=== PATIENT | male | born 1945 | race Caucasian/White ===

== ENCOUNTER → 2017-10-06 10:57 | Outpatient (CLI) | payer MEDICARE, OTHER, SELFPAY ==
[2017-10-07 10:40] LABS: Hepatitis C Ab w Rflx HCV PCR Negative (NEGAT)
== END ==
PROVIDERS: PCP Emergency Medicine; Visit Provider Emergency Medicine
DX: Z11.59 Encounter for screening for other viral diseases (principal); Z11.9 Encounter for screening for infectious and parasitic diseases, unspecified
CPT/HCPCS: 36415; 86803

== ENCOUNTER 2018-05-04 10:56 | Outpatient (CLI) | payer MEDICARE, OTHER, SELFPAY ==
--- NOTE | 2018-05-04 10:47 | DI.RAD_ITS ---
SYMPTOM/DIAGNOSIS: LT SHOULDER PAIN LEFT SHOULDER: The bony structures are normally mineralized. The glenohumeral joint is well maintained with minimal DJD. Also mild DJD involving the AC joint is apparent. There is no evidence of a fracture or dislocation.
== END 2018-05-04 11:16 ==
PROVIDERS: PCP Emergency Medicine; Referring Provider Emergency Medicine; Visit Provider Student in an Organized Health Care Education/Training Program
DX: M25.512 Pain in left shoulder (principal); M19.012 Primary osteoarthritis, left shoulder; I10 Essential (primary) hypertension
CPT/HCPCS: 99213; 73030

== ENCOUNTER → 2018-06-29 10:20 | Outpatient (BNVA) | payer MEDICARE, OTHER, SELFPAY | PROVIDERS: PCP Emergency Medicine; Referring Provider Emergency Medicine; Visit Provider Student in an Organized Health Care Education/Training Program | DX: M25.512 Pain in left shoulder (principal); I10 Essential (primary) hypertension; M75.82 Other shoulder lesions, left shoulder | CPT/HCPCS: 99212; 99213 ==

== ENCOUNTER 2018-09-22 00:40 | Outpatient (CLI) | payer MEDICARE, OTHER, SELFPAY ==
--- NOTE | 2018-09-22 09:38 | DI.MRI_ITS ---
SYMPTOM/DIAGNOSIS: LEFT SHOULDER PAIN MRI LEFT SHOULDER: Routine noncontrast examination was performed. There appears to be a large tear of the supraspinatus tendon anteriorly at its insertion on to the greater tuberosity. The infraspinatus tendon appears intact as do the subscapularis and teres minor tendons There is mild fatty atrophy of the teres minor muscle and the infraspinatus muscle. The biceps tendon has a normal appearance and location. The glenoid labrum is grossly unremarkable on this noncontrast examination. The articular cartilage at the glenohumeral joint appears well maintained. The ligaments are intact. There is a small amount of fluid seen in the subacromial, subdeltoid bursa. There is normal amount of fluid seen at the glenohumeral joint. The soft tissues are unremarkable. There are mild degenerative signal changes in the greater tuberosity and at the acromioclavicular joint. No findings to suggest an occult fracture or avascular necrosis is present. IMPRESSION: Large partial tear of the supraspinatus tendon.
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
== END 2018-09-22 01:00 ==
PROVIDERS: PCP Emergency Medicine; Visit Provider Student in an Organized Health Care Education/Training Program
DX: M25.512 Pain in left shoulder (principal); M75.102 Unspecified rotator cuff tear or rupture of left shoulder, not specified as traumatic
CPT/HCPCS: 73221

== ENCOUNTER → 2018-09-28 13:31 | Outpatient (BNVA) | payer MEDICARE, OTHER, SELFPAY | PROVIDERS: PCP Emergency Medicine; Referring Provider Emergency Medicine; Visit Provider Student in an Organized Health Care Education/Training Program | DX: M75.102 Unspecified rotator cuff tear or rupture of left shoulder, not specified as traumatic (principal); Z87.81 Personal history of (healed) traumatic fracture; I10 Essential (primary) hypertension | CPT/HCPCS: 99213 ==

== ENCOUNTER 2018-11-23 13:30 | Outpatient (CLI) | payer MEDICARE, OTHER, SELFPAY ==
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
== END 2018-11-23 13:50 ==
PROVIDERS: PCP Emergency Medicine; Visit Provider Student in an Organized Health Care Education/Training Program
DX: Z01.818 Encounter for other preprocedural examination (principal); M75.102 Unspecified rotator cuff tear or rupture of left shoulder, not specified as traumatic; I10 Essential (primary) hypertension
CPT/HCPCS: NC

== ENCOUNTER 2018-11-29 06:55 | Day surgery (SDC) | payer MEDICARE, OTHER, SELFPAY ==
[2018-11-29] VITALS (8 sets, daily range): BP systolic 136–172; BP diastolic 77–99; PULSE 56–64; RESP 12–16; TEMP 36–36.6; O2SAT 95–98
[2018-11-29] MEDS: Lactated Ringers 1,000 ML 80 ML IV ×2 (07:57→08:59)
--- NOTE | 2018-11-29 08:06 | PDOC.DSDIS_ITS ---
Discharge Plan Disposition Patient Disposition: HOME Condition: Good Discharge Details Reason For Visit: (L) RTC TEAR Attending Provider: Cheng Martinez Primary Care Provider: Carlos Cuellar Home Meds and New Rx's Prescriptions: New acetaminophen 500 mg tablet 500 mg PO Q6H PRN (Reason: pain) Qty: 60 RF: 2 hydrocodone-acetaminophen 5-325 mg tablet 1 tab PO Q6H PRN (Reason: severe pain) Qty: 12 RF: 0 Continued aspirin [Aspir-81] 81 MG tablet,delayed release (DR/EC) 1 tab PO DAILY RF: 0 sildenafil [Viagra] 100 MG tablet 1 tab PO PRN MDD 1 tab Qty: 10 RF: 12 metoprolol succinate [Toprol XL] 25 MG tablet extended release 24 hr 1 tab PO DAILY Qty: 90 RF: 4 Adjuvant As01b/Pf, Vial 1 of 2 [Shingrix Adjuvant Component] 0.5 ML VIAL 0.5 ml IM ONCE Qty: 1 RF: 1 hydrochlorothiazide 25 mg tablet 25 mg PO DAILY Qty: 90 RF: 4 ibuprofen 200 mg Tablet 200 mg PO BID RF: 0 atorvastatin 40 mg tablet 40 mg PO .EVENING RF: 0 Discharge Instructions Stand Alone Forms: Juan España w/RCR Referrals: Cheng Martinez MD [ [facility] STAFF PHYSICIAN] - Equipment/Supplies: Bolster Pillow and Sling Activity:: Elevate Remove Dressings/Wound Care:: Do Not Remove Shower/Bathe:: Cover Diet:: As Tolerated Discharge Orders Discharge Orders: Discharge Order (Routine); Ordered 11/29/18 Ordered By: Ricarda Puentes DS: Diagnosis Discharge Diagnosis (1) Left rotator cuff tear: Status: Chronic
[2018-11-29] MEDS: Bupivacaine LIPOSOME/PF 133 MG/10 ML VIAL IJ (08:08)
[2018-11-29] MEDS: CLINDAMYCIN 600 MG/50 ML BAG 100 MG IVPB (08:53)
[2018-11-29] MEDS: EPINEPHrine 1 MG/ML AMP pres-free (09:20)
--- NOTE | 2018-11-29 13:54 | W.PM.OP ---
Date of service: 11/29/18 Time of Service: 10:55 Operative Note Operative Note DATE OF PROCEDURE: 11/29/18 PRE-OP DIAGNOSIS: Left biceps tendinitis, left rotator cuff tear POST-OP DIAGNOSIS: other (Left biceps tendon tear, left rotator cuff tear) PROCEDURE: - Arthroscopic Rotator Cuff Repair - Extensive debridement of anterior and posterior glenohumeral joint and rotator cuff - Subacromial Debridement with Acromioplasty SURGEON: Cheng Martinez SHIRT IRONER SUPERVISOR: Ricarda Puentes ANESTHESIA: GETA and regional ESTIMATED BLOOD LOSS: 0 PATHOLOGY: none sent COMPLICATIONS: None Patient was transported to: PACU Patient's condition: stable Indications: I have seen Fahad in clinic for a painful shoulder. Pathology was confirmed based on MRI and exam findings. Nonoperative measures were exhausted but disability and pain persisted. I discussed shoulder arthroscopy and procedures. I reviewed the risks of the procedures to include, but not limited to, bleeding, infection, pain, stiffness, damage to nerves or vessels, recurrence, hardware failure, blood clot. Despite these risks, the patient elected to proceed. Findings: A diagnostic arthroscopy was performed with the following findings: Articular Side - Glenohumeral Joint: No significant arthritic change - Labrum: Fraying throughout from 10-3 o'clock - Cuff: Articular sided tear of the supraspinatus exposing 7 to 8 mm - Biceps: Complex tearing of the biceps tendon Subacromial Side - Bursal: Notable inflammatory disease - Rotator Cuff: Friable tissue overlying the articular sided tear which communicated into the joint - Small anterolateral spur Procedure Description: Fahad was greeted in the preoperative holding area where the correct side was identified and marked. The consent was reviewed with the patient and signed. The history and physical was updated. All questions were answered. Fahad was taken back to the PACU for administration of an intrascalene nerve block. He was then taken to the operating room. The patient was placed into the supine position on the operating room table. A general anesthetic was administered. Fahad was then positioned in the beach chair position. All bony prominences were well padded. The head was placed in a foam supervisor tunnel heading in a neutral position. Prophylactic antibiotics in the form of clindamycin were administered. The left arm/shoulder was then prepped with Chloraprep and draped in a standard fashion with stockinette and shoulder drape. A timeout to confirm correct identity, side and site, procedure, allergies, anesthesia, and medical concerns was performed. The arm was placed into a pneumatic dejesus, SPIDER2. The shoulder arthroscopy was then performed. The glenohumeral joint was injected with 20 cc of normal saline with good flow back. A standard posterior portal was made and the joint was entered atraumatically with a blunt arthroscope. Once inside we had good visualization of the structures of the glenohumeral joint. An anterior portal was established with spinal needle localization. A 6.5 mm cannula was inserted. A probe was then used to perform a diagnostic arthroscopy. There is noted to be no significant cartilage damage of the glenoid humeral joint. The labrum was frayed from about 10:00 to 3:00. There were no loose bodies in the inferior pouch. The superior rotator cuff was torn from the anterior most aspect of the supraspinatus through the posterior aspect. There is about 7 to 8 mm of footprint exposed but the tissue quality appeared to be quite poor. The biceps tendon had significant tearing in its intra-articular portion. The subscapularis had some fraying at its insertion over the upper portion of the subscapularis tendon but was otherwise intact. Using letter cautery device and performed a biceps tenotomy. With both shaver and letter cautery I debrided the labrum from anterior to posterior extending down to the posterior labrum at 3:00. I also debrided down the insertional fibers of the subscapularis to expose the tendinous fibers making sure that was completely attached. I also debrided down the articular side of the rotator cuff exposing the dimensions of the exposed tuberosity. The arthroscope was then inserted into the subacromial space. The 6.5 mm cannula was placed lateral to the CA ligament. Given that there was no significant tearing of the rotator cuff I went ahead and release the CA ligament off the anterolateral corner of the acromion. A complete bursectomy is performed anteriorly, posteriorly, and laterally with electrocautery and shaver. This had excellent exposure of the rotator cuff. An anterolateral portal was then made with spinal needle localization and a 7.5 mm cannula was placed. The bursal side rotator cuff was inspected and this demonstrated friability on the bursal side rotator cuff at the level of the articular sided tear, which was marked with a PDS. A probe easily fell into the cuff and through the cuff into the joint. This area of the rotator cuff was then debrided with a shaver exposing the tear edges. The edges were debrided down. The footprint was debrided with a shaver to expose bleeding bone. A secondary posterior lateral viewing portal was established. The anterior lateral portal became the working portal. A tissue grasper was used to reduce the rotator cuff. A single Mitek Healix 4.5 mm anchor was then placed along the articular margin. 2 horizontal mattress sutures were placed into the supra spinatus tendon. These were done with a retrograde suture passing device. They were tied and this brought down the tendon to the articular side of the footprint. There was some extra tissue overlying the footprint and no gapping. I then placed a single lateral row anchor, Mytec Healix 4.75 mm, incorporating the suture limbs into the lateral aspect of the proximal humerus. There is a small dogear anteriorly which was brought down with the single stitch within the lateral anchor. The sutures were cut. There was a prominent anterolateral spur. A 5.0 mm cecilia was then inserted from the posterior portal. The anterolateral corner of the acromion was then resected in plane with the posterior slope of the acromion. The scope equipment was removed from the shoulder. Excess fluid was evacuated. The portal sites were closed with 3-0 Monocryl. The wounds were dressed with Steri-Strips, 4 x 4's, ABDs, Medipore tape. A sling was applied. The patient tolerated the procedure well and was returned to the PACU in a stable condition suffering no known complication.
== END 2018-11-29 13:21 | disposition home or self-care (01) ==
PROVIDERS: PCP Emergency Medicine; Visit Provider Student in an Organized Health Care Education/Training Program
PROC: (CPT 29827; principal; 2018-11-29 09:00)
DX: S46.012A Strain of muscle(s) and tendon(s) of the rotator cuff of left shoulder, initial encounter (principal); S46.112A Strain of muscle, fascia and tendon of long head of biceps, left arm, initial encounter; S43.492A Other sprain of left shoulder joint, initial encounter; V00.321A Fall from snow-skis, initial encounter; Y93.23 Activity, snow (alpine) (downhill) skiing, snowboarding, sledding, tobogganing and snow tubing; G89.18 Other acute postprocedural pain; I10 Essential (primary) hypertension; I25.2 Old myocardial infarction; Z87.891 Personal history of nicotine dependence; Z86.2 Personal history of diseases of the blood and blood-forming organs and certain disorders involving the immune mechanism
CPT/HCPCS: 29827; 29823; 29826; 76942; J0131; J0171; J1100; J1885; J2250; J2405; J3010; L3670

== ENCOUNTER → 2018-12-09 09:13 | Outpatient (BNVA) | payer MEDICARE, OTHER, SELFPAY | PROVIDERS: PCP Emergency Medicine; Referring Provider Emergency Medicine; Visit Provider Student in an Organized Health Care Education/Training Program | DX: S46.012A Strain of muscle(s) and tendon(s) of the rotator cuff of left shoulder, initial encounter; X58.XXXA Exposure to other specified factors, initial encounter; I10 Essential (primary) hypertension ==

== ENCOUNTER → 2019-01-05 09:18 | Outpatient (BNVA) | payer MEDICARE, OTHER, SELFPAY | PROVIDERS: PCP Emergency Medicine; Referring Provider Emergency Medicine; Visit Provider Student in an Organized Health Care Education/Training Program | DX: S46.012D Strain of muscle(s) and tendon(s) of the rotator cuff of left shoulder, subsequent encounter (principal); X58.XXXD Exposure to other specified factors, subsequent encounter; I10 Essential (primary) hypertension ==

== ENCOUNTER → 2019-02-13 10:21 | Outpatient (BNVA) | payer MEDICARE, OTHER, SELFPAY | PROVIDERS: PCP Emergency Medicine; Referring Provider Emergency Medicine; Visit Provider Student in an Organized Health Care Education/Training Program | DX: I10 Essential (primary) hypertension; S46.012D Strain of muscle(s) and tendon(s) of the rotator cuff of left shoulder, subsequent encounter; X58.XXXD Exposure to other specified factors, subsequent encounter ==

== ENCOUNTER → 2019-03-27 09:57 | Outpatient (BNVA) | payer MEDICARE, OTHER, SELFPAY | PROVIDERS: PCP Emergency Medicine; Referring Provider Emergency Medicine; Visit Provider Student in an Organized Health Care Education/Training Program | DX: S46.012D Strain of muscle(s) and tendon(s) of the rotator cuff of left shoulder, subsequent encounter (principal); X58.XXXD Exposure to other specified factors, subsequent encounter | CPT/HCPCS: 99213 ==

== ENCOUNTER 2019-10-18 01:13 | Outpatient (CLI) | payer MEDICARE, OTHER, SELFPAY ==
--- NOTE | 2019-10-18 07:15 | DI.RAD_ITS ---
EXAM: XR CHEST 2V PA LATERAL CLINICAL HISTORY: Chronic cough,R05 TECHNIQUE: COMPARISON: No exams were available for comparison FINDINGS: There is a vertebral compression fracture at the thoracolumbar junction, perhaps T12. This is of unc ertain age. Heart is not enlarged and the lungs are clear and well expanded. No pleural effusion seen. IMPRESSION: No evidence of acute process. RADIATION DOSE DELIVERED: Total DLP
== END 2019-10-18 01:33 ==
PROVIDERS: PCP Emergency Medicine; Visit Provider Emergency Medicine
DX: R05 Cough (principal); S22.089A Unspecified fracture of T11-T12 vertebra, initial encounter for closed fracture; I47.1 Supraventricular tachycardia; I49.3 Ventricular premature depolarization
CPT/HCPCS: 71046; 93225

== ENCOUNTER 2019-10-18 03:41 | Outpatient (CLI) | payer MEDICARE, OTHER, SELFPAY | END 2019-10-18 04:01 | PROVIDERS: PCP Emergency Medicine; Visit Provider Emergency Medicine | DX: R00.1 Bradycardia, unspecified (principal); I47.1 Supraventricular tachycardia; I49.3 Ventricular premature depolarization | CPT/HCPCS: 93225 ==

== ENCOUNTER 2019-10-19 14:25 | Outpatient (CLI) | payer MEDICARE, OTHER, SELFPAY | END 2019-10-19 14:45 | PROVIDERS: PCP Emergency Medicine; Visit Provider Emergency Medicine | DX: R00.1 Bradycardia, unspecified (principal); I47.1 Supraventricular tachycardia; I49.3 Ventricular premature depolarization | CPT/HCPCS: 93227; 93226 ==

== ENCOUNTER 2019-10-20 00:40 | Outpatient (CLI) | payer MEDICARE, OTHER, SELFPAY ==
[2019-10-20 13:31] LABS: HDL Cholesterol 64 mg/dL (40-60); Triglyceride 119 mg/dL (<150)
[2019-10-20 13:44] LABS: Hemoglobin A1C 5.7 % (<5.7)
[2019-10-20 14:39] LABS: Calculated LDL 83 mg/dL (<100); Cholesterol 170 mg/dL (<200)
== END 2019-10-20 01:00 ==
PROVIDERS: PCP Emergency Medicine; Visit Provider Emergency Medicine
DX: I10 Essential (primary) hypertension (principal); R73.9 Hyperglycemia, unspecified
CPT/HCPCS: 36415; 80061; 83036

== ENCOUNTER → 2019-11-14 12:57 | Outpatient (BNVA) | payer MEDICARE, OTHER, SELFPAY | PROVIDERS: PCP Emergency Medicine; Referring Provider Emergency Medicine; Visit Provider Nurse Practitioner Gerontology | DX: N52.1 Erectile dysfunction due to diseases classified elsewhere (principal); N40.1 Benign prostatic hyperplasia with lower urinary tract symptoms; R33.8 Other retention of urine; I10 Essential (primary) hypertension | CPT/HCPCS: 99204; 99215 ==

== ENCOUNTER → 2019-12-13 11:20 | Outpatient (BNVA) | payer MEDICARE, OTHER, SELFPAY | PROVIDERS: PCP Emergency Medicine; Referring Provider Emergency Medicine; Visit Provider Nurse Practitioner Gerontology | DX: N52.1 Erectile dysfunction due to diseases classified elsewhere (principal); N40.1 Benign prostatic hyperplasia with lower urinary tract symptoms; R33.8 Other retention of urine; I10 Essential (primary) hypertension | CPT/HCPCS: 99213 ==

== ENCOUNTER → 2020-03-13 12:41 | Outpatient (BNVA) | payer MEDICARE, OTHER, SELFPAY | PROVIDERS: PCP Emergency Medicine; Referring Provider Emergency Medicine; Visit Provider Nurse Practitioner Gerontology | DX: N52.1 Erectile dysfunction due to diseases classified elsewhere (principal); N40.1 Benign prostatic hyperplasia with lower urinary tract symptoms; R33.8 Other retention of urine | CPT/HCPCS: 99213 ==

== ENCOUNTER 2020-08-22 11:13 | Outpatient (CLI) | payer MEDICARE, OTHER, SELFPAY ==
[2020-08-22 12:54] LABS: Anion Gap 10.8 mmol/L (3-11); BUN 16 mg/dL (7-18); CO2 26.2 mmol/L (21.0-32.0); CREATININE 1.1 mg/dL (0.70-1.30); Calcium 9.3 mg/dL (8.5-10.1); Chloride 96 mmol/L (98-107); Glucose 94 mg/dL (74-106); Potassium 4.4 mmol/L (3.5-5.1); Sodium 133 mmol/L (136-145)
== END 2020-08-22 11:14 | disposition home or self-care (01) ==
LOC: LOS 11:14
PROVIDERS: PCP Emergency Medicine; Visit Provider Emergency Medicine
DX: I10 Essential (primary) hypertension (principal)
CPT/HCPCS: 36415; 80048

== ENCOUNTER → 2020-09-09 10:28 | Outpatient (BNVA) | payer MEDICARE, OTHER, SELFPAY | PROVIDERS: PCP Emergency Medicine; Referring Provider Emergency Medicine; Visit Provider Nurse Practitioner Gerontology | DX: N52.1 Erectile dysfunction due to diseases classified elsewhere (principal); N40.1 Benign prostatic hyperplasia with lower urinary tract symptoms; R33.8 Other retention of urine | CPT/HCPCS: 99214 ==

== ENCOUNTER 2021-03-12 02:04 | Outpatient (CLI) | payer MEDICARE, SELFPAY ==
[2021-03-12 08:42] LABS: Hemoglobin A1C 5.6 % (<5.7)
[2021-03-12 10:09] LABS: ALT 32 U/L (16-63); AST 17 U/L (15-37); Albumin 4.2 g/dL (3.4-5.0); Alkaline Phosphatase 71 U/L (46-116); Anion Gap 7.4 mmol/L (3-11); BUN 15 mg/dL (7-18); Bilirubin, Total 0.9 mg/dL (0.2-1.0); CO2 29.6 mmol/L (21.0-32.0); CREATININE 1.3 mg/dL (0.70-1.30); Calcium 9.3 mg/dL (8.5-10.1); Calculated LDL 81 mg/dL (<100); Chloride 97 mmol/L (98-107); Cholesterol 167 mg/dL (<200); Estimated GFR 54.11 (mL/min/1.73m2); GGT 51 U/L (15-85); Glucose 93 mg/dL (74-106); HDL Cholesterol 71 mg/dL (40-60); Potassium 3.9 mmol/L (3.5-5.1); Sodium 134 mmol/L (136-145); Total Protein 7.7 g/dL (6.4-8.2); Triglyceride 78 mg/dL (<150)
[2021-03-12 10:59] LABS: Bilirubin, Direct 0.2 mg/dL (0.0-0.2)
[2021-03-12 17:23] LABS: PSA, Screening 0.5 ng/mL (0.0-6.5)
== END 2021-03-12 02:05 | disposition home or self-care (01) ==
LOC: LBO 02:04
PROVIDERS: PCP Family Medicine; Visit Provider Emergency Medicine
DX: E11.9 Type 2 diabetes mellitus without complications (principal); Z78.9 Other specified health status; I25.10 Atherosclerotic heart disease of native coronary artery without angina pectoris; N40.1 Benign prostatic hyperplasia with lower urinary tract symptoms; R33.8 Other retention of urine; Z12.5 Encounter for screening for malignant neoplasm of prostate; I10 Essential (primary) hypertension
CPT/HCPCS: 36415; 80048; 80061; 80076; 84153; 82977; 83036

== ENCOUNTER 2021-03-13 00:51 | Outpatient (CLI) | payer MEDICARE, SELFPAY ==
--- NOTE | 2021-03-13 15:00 | ETT_ITS ---
APPROVED REPORT Exam: Exercise Treadmill Patient Location: Out-Patient Room/Bed: Stress Nurse: Mercedes Ferraro RN Ordering Provider:ANDRES LEDESMA, Contact Number: [phone] BMI: 25.84 Baseline Rhythm: Sinus Rhythm/1st Degree AV Block Comment: multifocal PVCs Indications: ATHERSCLEROSIS OF INUPIAT CORONARY ARTERY Medical History Medical History: HLD, HTN, ASCVD, HX of [place], ETOH Abuse, Ht tobacco use, Bradycardia, Elevated blood s ugar Cardiac Medications: Sildenafil, Metoprolol succinate, Hydrochlorothiazide, Atorvastatin, Aspirin, Allergies: PNCs, Amlodipine Cardiac Risk Factors: FHX of CAD, HTN, Hyperlipidemia, CVD, Smoking (former) Previous Cardiac Procedures: PCI (no stent, 1988) Pretest Chest Pain Characteristics: No chest pain Exercise History: Sedentary Physical Disabilities: Plantar fascitis Lung Sounds: Clear to auscultation Heart Sounds: Regular Stress Test Details Test: Exercise stress testing was performed using a Jose protocol. Rest Stress HR Resting HR Supine: 70 bpm Max Heart Rate (APMHR): 147 bpm Resting HR Standin bpm Target HR (85% APMHR): 124 bpm Max HR Achieved: 136 bpm % of APMHR: 92 Recovery HR: 81 bpm HR response to stress: Abnormal HR response to stress Comment: HR decreased from 120's to 80's during exercise, despite increase in intensity. BP Resting BP Supine: 138/80 mmHg Resting BP Standin/80 mmHg Max BP: 162/80 mmHg Recovery BP: 138/76 mmHg BP response to stress: Blunted blood pressure response to stress; Abnormal hypotensive response to ce ssation of exercise ECG Resting ECG: Sinus Rhythm, 1st degree AV block Ectopy: multifocal PVCs Comment: T wave inversion noted in lead III when standing. Stress ECG: Sinus Tachycardia ST Change: Downsloping ST depression Lead(s): inferolateral leads Maximum ST Deviation: 2 mm Arrhythmia: PACs developing after min 6 of exercise. Recovery ECG: Sinus Rhythm, 1st degree AV block Lead(s): I, II, III, aVF, V2, V3, V4, V5, V6 Recovery ST Deviation: 5 mm Recovery Arrhythmia: PACs w/ noncompensatory pause, mutifocal PVCs, couplets Comment: ST segments returning to baseline by minute 20 of recovery Clinical Reason for Termination: Stopped by museum technician Stress Symptoms: Dyspnea Exercise duration: 6 min38 sec Highest Stage Reached: Stage 3: 3.4 mph at 14% grade. Exercise capacity: 8.03 METs [place] Treadmill Score: -18 Rate Pressure Product: [id number] Stress ECG Conclusion 1. Resting electrocardiogram showed left ventricular hypertrophy, 2. Patient exercised on the Jose protocol and completed a workload of 8.03 METS, limited by shortnes s of breath 3. Normal blood pressure response to exercise. Abnormal heart rate response to exercise. The patien t achieved 92% of predicted heart rate for age 4. At peak exercise there was approximately [address] depression in the inferior and ant erolateral leads, consistent with myocardial ischemia 5. Atrial and ventricular ectopic beats were noted 6. ST abnormalities persisted through minute 20 of recovery [place] Treadmill Score is -18 which is High risk. Stress Test Summary STAGE Time (mins) Speed (mph) Grade (%) HR BP SYMPTOMS METS Supine 70 138/80 Standing 86 136/80 1 3 1.7 10 109 132/78 4.6 2 6 2.5 12 124 138/82 SpO2 97% 7 1 min recovery 126 118/64 mild SOB 3 min recovery 102 162/80 SOB resolved. 6 min recovery 91 160/84 9 min recovery 89 156/80 12 min recovery 86 148/80 15 85 138/76
== END 2021-03-13 01:11 ==
PROVIDERS: PCP Family Medicine; Visit Provider Emergency Medicine
DX: I25.10 Atherosclerotic heart disease of native coronary artery without angina pectoris (principal); Z82.49 Family history of ischemic heart disease and other diseases of the circulatory system; I49.1 Atrial premature depolarization; I44.0 Atrioventricular block, first degree; I51.7 Cardiomegaly; R94.31 Abnormal electrocardiogram [ECG] [EKG]; I10 Essential (primary) hypertension; E78.5 Hyperlipidemia, unspecified; Z87.891 Personal history of nicotine dependence; N52.1 Erectile dysfunction due to diseases classified elsewhere; N40.1 Benign prostatic hyperplasia with lower urinary tract symptoms; R33.8 Other retention of urine
CPT/HCPCS: 93016; 93018; 93306; 99214; 93017

== ENCOUNTER 2021-04-17 08:58 | Outpatient (CLI) | payer MEDICARE, SELFPAY ==
--- NOTE | 2021-04-17 08:45 | RT.EKG_ITS ---
APPROVED REPORT Exam: Resting ECG Reason for Exam: chest pain Patient Location: O HR:66 bpm ECG Measurements Heart Rate 66 AXIS NH 251 P 37 QRSd 106 QRS 19 QT 417 T 15 QTc 437 Conclusion Sinus rhythm...normal P axis, V-rate 50- 99 Prolonged NH interval...NH >220, V-rate 50- 90 Left atrial enlargement...P, P'>60mS, <-0.15mV V1 Inferior infarct, old...Q >35mS, II III aVF
== END 2021-04-17 08:59 | disposition home or self-care (01) ==
LOC: DI.CARD 08:59
PROVIDERS: PCP Family Medicine; Visit Provider Internal Medicine Cardiovascular Disease
DX: I20.8 Other forms of angina pectoris (principal); R07.89 Other chest pain; R94.31 Abnormal electrocardiogram [ECG] [EKG]
CPT/HCPCS: 93010

== ENCOUNTER → 2021-04-17 12:49 | Outpatient (BNVA) | payer MEDICARE, SELFPAY | PROVIDERS: PCP Family Medicine; Referring Provider Family Medicine; Visit Provider Internal Medicine Cardiovascular Disease | DX: I25.10 Atherosclerotic heart disease of native coronary artery without angina pectoris (principal); E78.5 Hyperlipidemia, unspecified; I10 Essential (primary) hypertension; I25.2 Old myocardial infarction | CPT/HCPCS: 93005; 99203; 99214 ==

== ENCOUNTER 2021-05-06 00:06 | Outpatient (CLI) | payer MEDICARE, SELFPAY ==
--- NOTE | 2021-05-06 07:00 | DI.NM_ITS ---
APPROVED REPORT Exam: Exercise Treadmill Patient Location: Out-Patient Room/Bed: Stress Nurse: Mercedes Ferraro RN Ordering Provider:DANNY ELLNIGTON, Contact Number: BMI: 26.77 Baseline Rhythm: 1DHB Comment: unifocal PVCs Indications: CAD Medical History Medical History: HLD, HTN, ASCVD, Hx of AL, ETOH Abuse, Hx tobacco use, Bradycardia, Elevated blood s ugars Cardiac Medications: Sildenafil, Metoprolol succinate, Hydrochlorothiazide, Atorvastatin, Aspirin, Allergies: Penicillin, Amlodipine Cardiac Risk Factors: FHX of CAD, HTN, Hyperlipidemia, DM, Smoking (former) Previous Cardiac Procedures: PCI (no stent, 1988) Pretest Chest Pain Characteristics: No chest pain Exercise History: Sedentary Physical Disabilities: Plantar fasciitis Lung Sounds: Clear to auscultation Heart Sounds: Regular Stress Test Details Test: Exercise stress testing was performed using a Jose protocol. Nuclear Acquisition: Rest Tc-99m/Stress Tc-99m 1 day Rest Isotope: Tc-99m Sestamibi. Dose: 10.5 Date: 05/06/2021 Injection Time: 0930 Stress Isotope: Tc-99m Sestamibi. Dose: 32.0 Date: 05/06/2021 Injection Time: 1123 HR Resting HR Supine: 63 bpm Max Heart Rate (APMHR): 147.131534 bpm Resting HR Standin bpm Target HR (85% APMHR): 124.564366 bpm Max HR Achieved: 133 bpm % of APMHR: 90.48 Recovery HR: 83 bpm HR response to stress: Abnormal HR response to stress Comment: brief period when exercise ended where HR dropped from low 130's to 90's. Recovered within s econds. Metoprolol succinate held for 24 hrs. BP Resting BP Supine: 152/80 mmHg Resting BP Standin/68 mmHg Max BP: 172/76 mmHg Recovery BP: 162/82 mmHg BP response to stress: Normal blood pressure response to stress. ECG Resting ECst degree AV block Ectopy: unifocal PVCs Stress ECG: Sinus Tachycardia ST Change: Downsloping ST depression Lead(s): I, II, III, aVF, V4, V5, V6 Stage: [address] Deviation: 2 mm Arrhythmia: None Recovery ECst degree AV block Recovery ST Change: Downsloping ST depression Lead(s): I,, II, III, aVF, V2, V4, V5, V6 Recovery ST Deviation: 5 mm Recovery Arrhythmia: multifocal PVCs Clinical Reason for Termination: terminated by RN d/t ST changes Stress Symptoms: None reported. Exercise duration: 06 min00 sec Rate Pressure Product: [id number] Stress ECG Conclusion 1. The resting electrocardiogram showed first-degree AV block, voltage for left ventricular hypertrop hy 2. Patient exercised on the Jose protocol and completed a workload of 7 METS 3. Normal heart rate and blood pressure response to exercise. The patient achieved 90% of predicted heart rate for age 4. The electrocardiographic portion of the test was consistent with myocardial ischemia with downslop ing diffuse ST-T abnormalities particularly in recovery 5. 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 There is no additional ischemia EF 36% Radiologist Interpretation Radiologist agrees with Supervisor Orchard's Interpretation. Radiologist Interpretation by: Eelonora Haynes MD Interpretation Date/Time: 05/06/2021 16:23:01
== END 2021-05-06 00:26 ==
LOC: DI 00:06
PROVIDERS: PCP Family Medicine; Visit Provider Internal Medicine Cardiovascular Disease
DX: I25.10 Atherosclerotic heart disease of native coronary artery without angina pectoris (principal); I49.3 Ventricular premature depolarization
CPT/HCPCS: 78452; 93016; 93018; 93017

== ENCOUNTER → 2021-05-19 14:06 | Outpatient (BNVA) | payer MEDICARE, SELFPAY | PROVIDERS: PCP Family Medicine; Referring Provider Family Medicine; Visit Provider Internal Medicine Cardiovascular Disease | DX: I25.10 Atherosclerotic heart disease of native coronary artery without angina pectoris (principal); I10 Essential (primary) hypertension | CPT/HCPCS: 99212; 99213 ==

== ENCOUNTER → 2022-03-12 10:34 | Outpatient (BNVA) | payer MEDICARE, SELFPAY | PROVIDERS: PCP Family Medicine; Referring Provider Family Medicine; Visit Provider Nurse Practitioner Gerontology | DX: N40.1 Benign prostatic hyperplasia with lower urinary tract symptoms (principal); R33.8 Other retention of urine; N52.1 Erectile dysfunction due to diseases classified elsewhere | CPT/HCPCS: 51798; 99213 ==

== ENCOUNTER 2022-04-09 01:26 | Outpatient (CLI) | payer MEDICARE, SELFPAY ==
[2022-04-09 13:00] LABS: ALT 28 U/L (16-63); Anion Gap 7.7 mmol/L (3-11); BUN 14 mg/dL (7-18); CO2 28.3 mmol/L (21.0-32.0); CREATININE 1.2 mg/dL (0.70-1.30); Calcium 9.5 mg/dL (8.5-10.1); Calculated LDL 83 mg/dL (<100); Chloride 98 mmol/L (98-107); Cholesterol 166 mg/dL (<200); Estimated GFR 63.46 (mL/min/1.73m2); Glucose 97 mg/dL (74-106); HDL Cholesterol 72 mg/dL (40-60); Sodium 134 mmol/L (136-145); Triglyceride 56 mg/dL (<150)
== END 2022-04-09 01:27 | disposition home or self-care (01) ==
LOC: LOS 01:26
PROVIDERS: PCP Family Medicine; Visit Provider Family Medicine
DX: E78.5 Hyperlipidemia, unspecified (principal); I10 Essential (primary) hypertension
CPT/HCPCS: 36415; 80048; 80061; 84460

== ENCOUNTER → 2022-05-18 13:35 | Outpatient (BNVA) | payer MEDICARE, SELFPAY | PROVIDERS: PCP Family Medicine; Visit Provider Internal Medicine Cardiovascular Disease | DX: I25.10 Atherosclerotic heart disease of native coronary artery without angina pectoris (principal); I10 Essential (primary) hypertension | CPT/HCPCS: 99213 ==

== ENCOUNTER → 2023-03-11 10:36 | Outpatient (BNVA) | payer MEDICARE, SELFPAY | PROVIDERS: PCP Family Medicine; Visit Provider Nurse Practitioner Gerontology | DX: N40.1 Benign prostatic hyperplasia with lower urinary tract symptoms (principal); R33.8 Other retention of urine | CPT/HCPCS: 51798; 99213 ==

== ENCOUNTER 2023-04-22 09:53 | Outpatient (CLI) | payer MEDICARE, SELFPAY ==
[2023-04-22 10:50] LABS: Anion Gap 9.8 mmol/L (3-11); BUN 14 mg/dL (7-18); CO2 27.2 mmol/L (21.0-32.0); CREATININE 1.1 mg/dL (0.70-1.30); Calcium 9.6 mg/dL (8.5-10.1); Calculated LDL 90 mg/dL (<100); Chloride 95 mmol/L (98-107); Cholesterol 185 mg/dL (<200); Estimated GFR 70.01 (mL/min/1.73m2); Glucose 97 mg/dL (74-106); HDL Cholesterol 80 mg/dL (40-60); Sodium 132 mmol/L (136-145); Triglyceride 76 mg/dL (<150)
== END 2023-04-22 09:54 | disposition home or self-care (01) ==
LOC: LBO 09:54
PROVIDERS: PCP Family Medicine; Visit Provider Family Medicine
DX: Z13.1 Encounter for screening for diabetes mellitus (principal); Z13.6 Encounter for screening for cardiovascular disorders
CPT/HCPCS: 36415; 80048; 80061

== ENCOUNTER → 2023-05-17 13:08 | Outpatient (BNVA) | payer MEDICARE, SELFPAY | PROVIDERS: PCP Family Medicine; Visit Provider Internal Medicine Cardiovascular Disease | DX: E78.5 Hyperlipidemia, unspecified (principal); I25.10 Atherosclerotic heart disease of native coronary artery without angina pectoris; I10 Essential (primary) hypertension | CPT/HCPCS: 99213 ==

== ENCOUNTER 2023-06-16 05:17 | Outpatient (CLI) | payer MEDICARE, SELFPAY ==
[2023-06-16 13:29] LABS: ALT 29 U/L (16-63); AST 18 U/L (15-37); Albumin 3.8 g/dL (3.4-5.0); Alkaline Phosphatase 67 U/L (46-116); Anion Gap 9.9 mmol/L (3-11); BUN 22 mg/dL (7-18); Bilirubin, Total 0.8 mg/dL (0.2-1.0); CO2 25.1 mmol/L (21.0-32.0); CREATININE 1.3 mg/dL (0.70-1.30); Calcium 8.9 mg/dL (8.5-10.1); Chloride 99 mmol/L (98-107); Estimated GFR 57.29 (mL/min/1.73m2); Glucose 95 mg/dL (74-106); Potassium 4.5 mmol/L (3.5-5.1); Sodium 134 mmol/L (136-145); Total Protein 7.5 g/dL (6.4-8.2)
== END 2023-06-16 05:18 | disposition home or self-care (01) ==
LOC: LBO 05:17
PROVIDERS: PCP Family Medicine; Visit Provider Family Medicine
DX: Z00.00 Encounter for general adult medical examination without abnormal findings (principal); I10 Essential (primary) hypertension
CPT/HCPCS: 36415; 80053

== ENCOUNTER 2023-07-08 05:09 | Outpatient (CLI) | payer MEDICARE, SELFPAY ==
[2023-07-08 12:06] LABS: ALT 32 U/L (16-63); AST 19 U/L (15-37); Albumin 3.9 g/dL (3.4-5.0); Alkaline Phosphatase 65 U/L (46-116); Anion Gap 8.6 mmol/L (3-11); BUN 16 mg/dL (7-18); Bilirubin, Total 0.5 mg/dL (0.2-1.0); CO2 25.4 mmol/L (21.0-32.0); CREATININE 1.4 mg/dL (0.70-1.30); Chloride 102 mmol/L (98-107); Estimated GFR 52.41 (mL/min/1.73m2); Glucose 102 mg/dL (74-106); Potassium 4.8 mmol/L (3.5-5.1); Sodium 136 mmol/L (136-145); Total Protein 7.7 g/dL (6.4-8.2)
== END 2023-07-08 05:10 | disposition home or self-care (01) ==
LOC: LBO 05:09
PROVIDERS: PCP Family Medicine; Visit Provider Family Medicine
DX: Z00.00 Encounter for general adult medical examination without abnormal findings (principal); I10 Essential (primary) hypertension
CPT/HCPCS: 36415; 80053

== ENCOUNTER → 2024-03-16 10:18 | Outpatient (BNVA) | payer MEDICARE, SELFPAY | PROVIDERS: PCP Family Medicine; Visit Provider Nurse Practitioner Gerontology | DX: N40.1 Benign prostatic hyperplasia with lower urinary tract symptoms (principal); R33.8 Other retention of urine | CPT/HCPCS: 51798; 99213 ==

== ENCOUNTER 2024-05-15 08:08 | Outpatient (CLI) | payer MEDICARE, SELFPAY ==
--- NOTE | 2024-05-15 14:00 | RT.EKG_ITS ---
APPROVED REPORT Exam: Resting ECG Reason for Exam: CAD Patient Location: O HR:61 bpm ECG Measurements Heart Rate 61 AXIS WV 254 P 44 QRSd 110 QRS 10 QT 410 T 50 QTc 413 Conclusion Sinus rhythm...normal P axis, V-rate 50- 99 Prolonged WV interval...WV >220, V-rate 50- 90 Left atrial enlargement...P, P'>60mS, <-0.15mV V1 Inferior infarct, old...Q >35mS, II III aVF
== END 2024-05-15 08:09 | disposition home or self-care (01) ==
PROVIDERS: PCP Family Medicine; Visit Provider Registered Nurse
DX: I25.10 Atherosclerotic heart disease of native coronary artery without angina pectoris (principal)
CPT/HCPCS: 93010

== ENCOUNTER → 2024-05-15 14:39 | Outpatient (BNVA) | payer MEDICARE, SELFPAY | PROVIDERS: PCP Family Medicine; Visit Provider Registered Nurse | DX: I25.10 Atherosclerotic heart disease of native coronary artery without angina pectoris (principal); I10 Essential (primary) hypertension | CPT/HCPCS: 93005; 99214 ==

== ENCOUNTER 2024-05-16 02:54 | Outpatient (CLI) | payer MEDICARE, SELFPAY ==
[2024-05-16 13:11] LABS: ALT 28 U/L (16-63); AST 18 U/L (15-37); Alkaline Phosphatase 63 U/L (46-116); Anion Gap 7.8 mmol/L (3-11); BUN 16 mg/dL (7-18); Bilirubin, Total 1.1 mg/dL (0.2-1.0); CO2 27.2 mmol/L (21.0-32.0); CREATININE 1.2 mg/dL (0.70-1.30); Calcium 9.4 mg/dL (8.5-10.1); Chloride 102 mmol/L (98-107); Estimated GFR 62.67 (mL/min/1.73m2); Glucose 99 mg/dL (74-106); Potassium 4.8 mmol/L (3.5-5.1); Sodium 137 mmol/L (136-145); Total Protein 7.5 g/dL (6.4-8.2)
== END 2024-05-16 02:55 | disposition home or self-care (01) ==
LOC: LOS 02:54
PROVIDERS: PCP Family Medicine; Visit Provider Family Medicine
DX: Z00.00 Encounter for general adult medical examination without abnormal findings (principal); I10 Essential (primary) hypertension
CPT/HCPCS: 36415; 80053

== ENCOUNTER 2024-07-25 00:53 | Outpatient (CLI) | payer MEDICARE, SELFPAY ==
--- NOTE | 2024-07-25 10:30 | DI.US_ITS ---
Exam(s) US SOFT TISSUE EXTREMITY EXAM: US SOFT TISSUE EXTREMITY CLINICAL HISTORY: Recent fall, hit right knee,h/o arthroscopy, soft tissue disorder,mass. TECHNIQUE: Ultrasound was performed using standard protocol. COMPARISON: No exams were available for comparison FINDINGS: Dedicated ultrasound examination of the area of concern on the medial aspect of the right knee was pe rformed. History of recent direct trauma. At this location there is a partially solid partially cystic collection measuring 4.2 x 2.0 x 3.9 cm. The appearance is that of a probable hematoma. This does not appear to be in communication with th e knee joint-adjacent suprapatellar bursa. IMPRESSION: Findings are consistent with a hematoma with measurements as above. DATA REPOSITORY:
--- NOTE | 2024-07-25 13:30 | DI.RAD_ITS ---
Exam(s) XR KNEE LT 3V AP,LAT,ES EXAM: XR KNEE LT 3V AP,LAT,ES CLINICAL HISTORY: Recent fall, hit knee; localized swelling, mass, lump, Z98.890, R22.9. TECHNIQUE: 2D digital imaging was performed. Three images were obtained. AP, lateral and PA tunnel views were obtained. COMPARISON: No exams were available for comparison FINDINGS: BONES: The patient has a left total knee arthroplasty. No fracture or dislocation. JOINTS: The orthopedic hardware is in good position. No evidence of hardware loosening. There is a well corticated 1.2 cm density in the anterior joint space which appears chronic. There is a small j oint effusion. SOFT TISSUE: Dystrophic calcifications are seen superior to the patella. Atherosclerotic calcificati ons are seen. IMPRESSION: 1. Unremarkable left total knee arthroplasty. 2. Possible loose body in the anterior joint space. 3. Small joint effusion. DATA REPOSITORY: RADIATION DOSE DELIVERED:
== END 2024-07-25 01:13 ==
LOC: DI 00:53
PROVIDERS: PCP Family Medicine; Visit Provider Nurse Practitioner Family
DX: Z98.890 Other specified postprocedural states (principal); M79.89 Other specified soft tissue disorders; T14.8XXA Other injury of unspecified body region, initial encounter
CPT/HCPCS: 73562; 76881